=== PATIENT | female | born 2000 | race Caucasian/White ===

== ENCOUNTER 2022-07-24 14:36 | Emergency (ER) | payer SELFPAY ==
--- OUTSIDE RECORDS SUMMARY | 2022-07-24 14:39 | XMS REPORT | Continuity of Care Document ---
:2000 Author Organization [facility] t Address [address] [facility] [address] [place] [address] Care Team Providers Name Role Phone ZEB SHORE Attending Clinician Unavailable Problems This patient has no known problems. Allergies, Adverse Reactions, Alerts This patient has no known allergies or adverse reactions. Medications This patient has no known medications. Procedures This patient has no known procedures. Encounters Start End Encounter Admission Attending Care Care Encounter Source Date/Time Date/Time Type Type Clinicians Facility Department ID 2022-06-12 2022-06-12 Emergency ER [facility] [id number] [place] 10:36:00 12:03:00 ZEB [id number] [facility] 2022-06-12 2022-06-12 emergency [id number] 10:36:00 12:03:00 [id number] [phone] [id number] Results This patient has no known results.
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
[2022-07-24] MEDS ORDERED: CEFTRIAXONE 500 MG/VIAL ONE (18:51)
[2022-07-24] MEDS ORDERED: ONDANSETRON 4 MG (ODT) TAB ONE (18:52)
[2022-07-24] MEDS ORDERED: AZITHROMYCIN 250 MG TAB ONE (18:52)
[2022-07-24] MEDS ORDERED: metroNIDAZOLE 500 MG TABLET ONE (18:52)
[2022-07-24 19:06] VITALS: TEMP 97.9
[2022-07-24 19:08] VITALS: BP 112/74; O2SAT 99
== END 2022-07-24 19:01 | disposition home or self-care (01) ==
LOC: ER 14:36
DX: T74.21XA Adult sexual abuse, confirmed, initial encounter (principal); F17.290 Nicotine dependence, other tobacco product, uncomplicated
CPT/HCPCS: 96372; 99285; Q0162